=== PATIENT | male | born 1950 | race Caucasian/White ===

== ENCOUNTER 2024-12-03 18:30 | Inpatient (IN) | payer MEDICARE, BC ==
[~2024-12-03] VITALS: Ht 175.3 cm; Wt 89.9 kg
[2024-12-03 18:58] VITALS: PULSE 104; RESP 31; O2SAT 95
[2024-12-03 19:06] LABS: BASOPHILS % (AUTO) 0.5 % (0-1); EOSINOPHILS % (AUTO) 0.1 % (0-6); HEMATOCRIT 35.6 % (42.0-52.0); HEMOGLOBIN 11.6 g/dl (14.0-17.9); LYMPHOCYTES # (AUTO) 0.4 X10'3 (1.1-4.8); LYMPHOCYTES % (AUTO) 15.3 % (21-51); MEAN CORPUSCULAR HEMOGLOBIN 26.9 PG (27.0-31.0); MEAN CORPUSCULAR HGB CONC 32.4 g/dL (33.0-36.5); MEAN PLATELET VOLUME 9.9 FL (7.4-10.4); MONOCYTES # (AUTO) 0.3 X10'3 (0-0.9); MONOCYTES % (AUTO) 11.2 % (2-12); NEUTROPHILS # (AUTO) 2.1 X10'3 (1.8-7.7); NEUTROPHILS % (AUTO) 72.9 % (42-75); PLATELET COUNT 250 X10'3 (140-440); RED BLOOD COUNT 4.29 X10'6 (4.70-6.10); RED CELL DISTRIBUTION WIDTH 16.8 % (11.5-14.5); WHITE BLOOD COUNT 2.9 X10'3 (4.5-11.0)
[2024-12-03 19:21] LABS: ALANINE AMINOTRANSFERASE 30 U/L (12-78); ALBUMIN 2.4 G/DL (3.4-5.0); ALBUMIN/GLOBULIN RATIO 0.6 (1.1-1.5); ALKALINE PHOSPHATASE 90 IU/L (46-116); ANION GAP 19 (8-16); ASPARTATE AMINO TRANSFERASE 54 U/L (10-37); BILIRUBIN,TOTAL 0.4 MG/DL (0.1-1.0); BLOOD UREA NITROGEN 46 MG/DL (7-18); BUN/CREATININE RATIO 10.1 (10.0-20.0); CALCIUM 7.6 MG/DL (8.5-10.1); CHLORIDE 97 MMOL/L (99-107); CREATININE 4.57 MG/DL (0.60-1.10); MAGNESIUM 1.8 MG/DL (1.5-2.4); PHOSPHORUS 6.1 MG/DL (2.3-4.5); POTASSIUM 4.3 MMOL/L (3.5-5.1); PRO BRAIN NATRIURETIC PEPTIDE 15104 PG/ML (0-125); SODIUM 131 MMOL/L (135-145); TOTAL CARBON DIOXIDE 15.2 MMOL/L (24-32); TOTAL PROTEIN 6.5 G/DL (6.4-8.2); eCRCL 14 ML/MIN; eGFR 13 ML/MIN
[2024-12-03] MEDS: albuterol 2.5 MG/3 ML nebule NEB ONE (19:24)
[2024-12-03] MEDS: ipratropium/albuterol 3ml nebule NEB PRN (19:24)
[2024-12-03 19:25] VITALS: PULSE 111; RESP 34; O2SAT 93
[2024-12-03 19:26] LABS: TOTAL CELLS COUNTED 100
[2024-12-03 19:31] LABS: C-REACTIVE PROTEIN 34.93 MG/DL (0.0-0.5)
[2024-12-03 19:45] LABS: GLUCOSE 443 MG/DL (70-104)
[2024-12-03 19:48] VITALS: PULSE 108; RESP 29
[2024-12-03] MEDS: furosemide 40mg/4ml inj IV ONE (20:59)
[2024-12-03] MEDS: nitroGLYCERIN 0.4mg SUBLingual tab SL ONE (21:04)
[2024-12-03] MEDS: rocuronium 10mg/ml inj IV ONE (21:55)
[2024-12-03] MEDS: etomidate 2mg/ml inj. IV ONE (21:55)
[2024-12-03 22:15] VITALS: BP 120/65; PULSE 121; RESP 16; O2SAT 88
[2024-12-03] MEDS ORDERED: propofol 1000mg/100ml bottle 100 ML IV PRN (22:20)
[2024-12-03] MEDS ORDERED: heparin 10,000 units/1 ML INJ IV ONE ×2 (23:20→23:50)
[2024-12-03] MEDS ORDERED: heparin 10,000 units/1 ML INJ IV PRN (23:20)
[2024-12-03 23:57] LABS: APTT 51 SECONDS (22-32); INR 1.3 INR
[2024-12-04] VITALS (22 sets, daily range): BP systolic 72–166; BP diastolic 37–87; PULSE 71–150; RESP 16–31; TEMP 97.6; O2SAT 82–95
[2024-12-04 00:02] LABS: ABG BASE EXCESS -17.9 mmol/L (-2.0-3.0); ABG HCO3 13.5 mmol/L (21.0-28.0); ABG OXYGEN SATURATION 90.6 % (94.0-98.0); ABG PCO2 (T) 54.6 mmHg (35.0-48.0); ABG PH (T) 7.007 (7.350-7.450); ABG PO2 (T) 75.1 mmHg (83.0-108.0); ALLEN'S TEST POSITIVE; FCOHb 0.3 % (0.5-1.5); FHHb 9.3 % (0.0-5.0); FMetHb 0.3 % (0.0-1.5); FO2Hb 90.1 % (94.0-98.0); PATIENT TEMPERATURE 36.5; RESPIRATORY RATE 18 b/min; TIDAL VOLUME 450 mL; TOTAL HEMOGLOBIN 13.1 G/dl (13.5-17.5)
[2024-12-04] MEDS: propofol 1000mg/100ml bottle 100 ML IV PRN (00:42)
[2024-12-04] MEDS: HEPARIN DRIP INITAL BOLUS --- DO NOT GIVE/ORDER MC ONE (00:42)
[2024-12-04] MEDS: MESSAGE TO NURSING IV ONE ×2 (00:43→06:49)
[2024-12-04] MEDS: vancomycin/NS 1 GM ADD-VANTAGE 250 ML IV PRN (00:47)
[2024-12-04] MEDS: heparin 25,000 UNIT/250ml bag 250 ML IV PRN (00:48)
[2024-12-04] MEDS: FENTANYL-0.9 % NACL/PF 100 ML IV SCH (02:32)
[2024-12-04] MEDS: sodium bicarbonate (8.4%) 1 mEq/ml syringe ONE (02:33)
[2024-12-04] MEDS: sodium bicarbonate (8.4%) 1 mEq/ml syringe IV ONE ×2 (02:33→03:56)
[2024-12-04 02:52] LABS: HEMOGLOBIN 11.7 g/dl (14.0-17.9); MEAN CORPUSCULAR HEMOGLOBIN 26.5 PG (27.0-31.0); RED BLOOD COUNT 4.42 X10'6 (4.70-6.10)
[2024-12-04 02:54] LABS: BASOPHILS % (AUTO) 0.4 % (0-1); EOSINOPHILS % (AUTO) 0.4 % (0-6); HEMATOCRIT 37.5 % (42.0-52.0); LYMPHOCYTES # (AUTO) 0.8 X10'3 (1.1-4.8); LYMPHOCYTES % (AUTO) 23.9 % (21-51); MEAN CORPUSCULAR HGB CONC 31.2 g/dL (33.0-36.5); MEAN CORPUSCULAR VOLUME 84.7 FL (78-98); MEAN PLATELET VOLUME 10.2 FL (7.4-10.4); MONOCYTES # (AUTO) 0.3 X10'3 (0-0.9); MONOCYTES % (AUTO) 9.8 % (2-12); NEUTROPHILS # (AUTO) 2.2 X10'3 (1.8-7.7); NEUTROPHILS % (AUTO) 65.5 % (42-75); PLATELET COUNT 307 X10'3 (140-440); RED CELL DISTRIBUTION WIDTH 17.2 % (11.5-14.5); WHITE BLOOD COUNT 3.3 X10'3 (4.5-11.0)
[2024-12-04 03:24] LABS: ALANINE AMINOTRANSFERASE 34 U/L (12-78); ALBUMIN/GLOBULIN RATIO 0.5 (1.1-1.5); ALKALINE PHOSPHATASE 87 IU/L (46-116); ANION GAP 17 (8-16); ASPARTATE AMINO TRANSFERASE 98 U/L (10-37); BILIRUBIN,TOTAL 0.5 MG/DL (0.1-1.0); BLOOD UREA NITROGEN 53 MG/DL (7-18); BUN/CREATININE RATIO 10.2 (10.0-20.0); CALCIUM 7.6 MG/DL (8.5-10.1); CHLORIDE 96 MMOL/L (99-107); CREATININE 5.19 MG/DL (0.60-1.10); MAGNESIUM 2.4 MG/DL (1.5-2.4); POTASSIUM 5.2 MMOL/L (3.5-5.1); SODIUM 130 MMOL/L (135-145); TOTAL CARBON DIOXIDE 17.3 MMOL/L (24-32); TOTAL PROTEIN 6.2 G/DL (6.4-8.2); TRIGLYCERIDES 153 MG/DL (20-135); eCRCL 13 ML/MIN; eGFR 11 ML/MIN
[2024-12-04 03:27] LABS: PHOSPHORUS 9.7 MG/DL (2.3-4.5)
[2024-12-04 03:36] LABS: GLUCOSE 512 MG/DL (70-104)
[2024-12-04 03:39] LABS: ABG BASE EXCESS -17.8 mmol/L (-2.0-3.0); ABG HCO3 14.4 mmol/L (21.0-28.0); ABG OXYGEN SATURATION 89.3 % (94.0-98.0); ABG PCO2 (T) 63.1 mmHg (35.0-48.0); ABG PH (T) 6.973 (7.350-7.450); ABG PO2 (T) 68.1 mmHg (83.0-108.0); ALLEN'S TEST Modified; FCOHb 0.5 % (0.5-1.5); FHHb 10.6 % (0.0-5.0); FO2Hb 88.9 % (94.0-98.0); MODE VENT - PRVC; PATIENT TEMPERATURE 36.4; PEEP 10 cm H2O; RESPIRATORY RATE 16 b/min; TIDAL VOLUME 500 mL; TOTAL HEMOGLOBIN 12.9 G/dl (13.5-17.5)
[2024-12-04] MEDS: sodium bicarbonate 1meq/ml inj 150 ML in sodium chloride 0.45% 1,000 ML IV SCH (04:25)
[2024-12-04] MEDS ORDERED: DEXTROSE 15 GM of carb/4 tabs (each vial/BOTTLE has 4 tablets) PO PRN ×2 (04:55)
[2024-12-04] MEDS: insulin glargine (Lantus) VIAL- multi-dose SQ ONE (04:55)
[2024-12-04] MEDS ORDERED: dextrose 50%-water 50ml dispensing syringe IV PRN ×2 (04:55)
[2024-12-04] MEDS ORDERED: glucagon, human recombinant 1mg kit SUBCUT PRN (04:55)
[2024-12-04] MEDS: ringers solution, lacted 1,000 ML IV ONE (05:00)
[2024-12-04] MEDS: NORepinephrine 8mg/ 250ml NS 250 ML IV SCH (05:06)
[2024-12-04 06:01] LABS: BILIRUBIN,URINE NEGATIVE (Neg); CLARITY,URINE CLEAR (Clear); COLOR,URINE YELLOW (Yellow); GLUCOSE, URINE 100 mg/dl (Neg); KETONES,URINE TRACE mg/dl (Neg); LEUKOCYTE ESTERASE ,URINE NEGATIVE (Neg); NITRITES, URINE NEGATIVE (Neg); OCCULT BLOOD,URINE LARGE (Neg); PH,URINE 5.5 (4.8-8.0); PROTEIN,URINE 100 mg/dl (Neg); UROBILINOGEN,URINE 0.2 E.U/dL (0.2-1.0)
[2024-12-04 06:03] LABS: UA COLLECTION TYPE FOLEY CATH
[2024-12-04 06:08] LABS: RBC,URINE 20-50 /HPF (0-2); WBC,URINE 0-4 /HPF (0-4)
[2024-12-04 06:09] LABS: AMORPHOUS URATES 1+; BACTERIA,URINE NONE SEEN /HPF (Neg); FINE GRANULAR CAST 0-3 /LPF (NEGATIVE); MUCUS STRANDS NONE SEEN /LPF (Neg); SQUAMOUS EPITHELIAL CELL,UR FEW /LPF (FEW)
[2024-12-04 06:14] LABS: APTT 65 SECONDS (22-32)
[2024-12-04] MEDS ORDERED: INSULIN LISPRO 100 UNIT/ML INSULN.PEN MULTI-DOSE SQ SCH (07:00)
[2024-12-04] MEDS ORDERED: piperacillin/tazo 4.5gm/100ml 100 ML IV ONE (08:00)
[2024-12-04] MEDS ORDERED: LIDOcaine 2% jelly 6ml syringe ***for topical use only ONE (08:00)
[2024-12-04 08:58] LABS: BASOPHILS % (AUTO) 0.2 % (0-1); MONOCYTES # (AUTO) 0.1 X10'3 (0-0.9)
[2024-12-04 08:59] LABS: EOSINOPHILS % (AUTO) 0.5 % (0-6); HEMATOCRIT 35.3 % (42.0-52.0); LYMPHOCYTES % (AUTO) 33.2 % (21-51); MEAN CORPUSCULAR HEMOGLOBIN 26.3 PG (27.0-31.0); MEAN CORPUSCULAR HGB CONC 31.1 g/dL (33.0-36.5); MEAN CORPUSCULAR VOLUME 84.5 FL (78-98); MONOCYTES % (AUTO) 3.2 % (2-12); NEUTROPHILS % (AUTO) 62.9 % (42-75); PLATELET COUNT 278 X10'3 (140-440); RED BLOOD COUNT 4.17 X10'6 (4.70-6.10); RED CELL DISTRIBUTION WIDTH 17.6 % (11.5-14.5); WHITE BLOOD COUNT 3.1 X10'3 (4.5-11.0)
[2024-12-04] MEDS: insulin glargine (Lantus) pen - multi-dose SQ SCH (08:59)
[2024-12-04] MEDS: INSULIN LISPRO 100 UNIT/ML INSULN.PEN MULTI-DOSE SQ SCH (09:03)
[2024-12-04 09:14] LABS: ALANINE AMINOTRANSFERASE 287 U/L (12-78); ALBUMIN 1.6 G/DL (3.4-5.0); ALBUMIN/GLOBULIN RATIO 0.4 (1.1-1.5); ALKALINE PHOSPHATASE 90 IU/L (46-116); ANION GAP 24 (8-16); ASPARTATE AMINO TRANSFERASE 507 U/L (10-37); BILIRUBIN,TOTAL 0.5 MG/DL (0.1-1.0); BLOOD UREA NITROGEN 57 MG/DL (7-18); BUN/CREATININE RATIO 9.8 (10.0-20.0); CALCIUM 8.7 MG/DL (8.5-10.1); CHLORIDE 97 MMOL/L (99-107); CREATININE 5.81 MG/DL (0.60-1.10); MAGNESIUM 2.6 MG/DL (1.5-2.4); POTASSIUM 5.6 MMOL/L (3.5-5.1); SODIUM 139 MMOL/L (135-145); TOTAL CARBON DIOXIDE 17.7 MMOL/L (24-32); TOTAL PROTEIN 5.3 G/DL (6.4-8.2); eCRCL 11 ML/MIN; eGFR 10 ML/MIN
[2024-12-04 09:18] LABS: GLUCOSE 414 MG/DL (70-104)
[2024-12-05] MEDS ORDERED: VANCOMYCIN LEVEL IV SCH (03:00)
== END 2024-12-04 11:57 | DRG 871 ==
LOC: ER 18:31 → ED HOLD 22:35 → CICU 2S 12-04 01:54
PROVIDERS: ADMIT Internal Medicine; ATTEND Internal Medicine
PROC: 5A09357 Assistance with Respiratory Ventilation, Less than 24 Consecutive Hours, Continuous Positive Airway Pressure (ICD-10-PCS; principal; 2024-12-03)
PROC: 0BH17EZ Insertion of Endotracheal Airway into Trachea, Via Natural or Artificial Opening (ICD-10-PCS; 2024-12-03)
PROC: 5A1935Z Respiratory Ventilation, Less than 24 Consecutive Hours (ICD-10-PCS; 2024-12-03)
PROC: 02HV33Z Insertion of Infusion Device into Superior Vena Cava, Percutaneous Approach (ICD-10-PCS; 2024-12-03)
PROC: B548ZZA Ultrasonography of Superior Vena Cava, Guidance (ICD-10-PCS; 2024-12-03)
PROC: 5A12012 Performance of Cardiac Output, Single, Manual (ICD-10-PCS; 2024-12-04)
DX: A41.9 Sepsis, unspecified organism (principal); I21.4 Non-ST elevation (NSTEMI) myocardial infarction; J80 Acute respiratory distress syndrome; R65.21 Severe sepsis with septic shock; J15.9 Unspecified bacterial pneumonia; J44.0 Chronic obstructive pulmonary disease with (acute) lower respiratory infection; N17.9 Acute kidney failure, unspecified; E87.20 Acidosis, unspecified; I46.9 Cardiac arrest, cause unspecified; Z66 Do not resuscitate; Z51.5 Encounter for palliative care; Z20.822 Contact with and (suspected) exposure to COVID-19; N18.9 Chronic kidney disease, unspecified; E11.22 Type 2 diabetes mellitus with diabetic chronic kidney disease; I25.10 Atherosclerotic heart disease of native coronary artery without angina pectoris; I12.9 Hypertensive chronic kidney disease with stage 1 through stage 4 chronic kidney disease, or unspecified chronic kidney disease; E11.65 Type 2 diabetes mellitus with hyperglycemia; Z98.61 Coronary angioplasty status; Z79.4 Long term (current) use of insulin
CPT/HCPCS: 31500; 36415; 36556; 36600; 71045; 71250; 80053; 81001; 82803; 82948; 83036; 83605; 83735; 83880; 84100; 84145; 84478; 84484; 85007; 85018; 85025; 85610; 85730; 86140; 87040; 87070; 87077; 87081; 87186; 87502; 87503; 87811; 92950; 93005; 94002; 94003; 94640; 94660; 94760; 96374; 96375; 99291; C1751; C1758; G0378; J0171; J1644; J1815; J1940; J2704; J3010; J3370; J3490; J7120